=== PATIENT | male | born 1945 | race Caucasian/White ===

== ENCOUNTER 2017-05-22 17:04 | Emergency (ER) | payer MEDICARE, OTHER ==
[2017-05-22] MEDS ORDERED: Aspirin 81 MG Tab.Chew PO ONE (17:17)
[2017-05-22] MEDS ORDERED: Nitroglycerin 0.4 MG Tab.SL SL ONE ×3 (17:17→17:49)
[2017-05-22] MEDS: Sodium Chloride 0.9% 10 ML Syringe FLUSH PRN ×2 (17:25→17:45)
--- NOTE | 2017-05-22 17:36 | EDM.PDOC ---
ED HPI GENERAL MEDICAL PROBLEM - General Chief Complaint: Chest Pain Stated Complaint: CHEST PAINS Time Seen by Provider: 05/22/17 17:11 Source of Information: Reports: Patient History Limitations: Reports: No Limitations - History of Present Illness INITIAL COMMENTS - FREE TEXT/NARRATIVE: Patient presents to emergency room today with chest pain and left bicep, axilla , shoulder pain. Nelson reports he has has slight pain off and on for two weeks since he changed his crestor to lipitor. The pain became much worse today 10 at 1500, did not get better with ibuprofen or tylenol. He describes the pain as shooting and stabbing. Left Shoulder Pain Score (Numeric/FACES): 8 - Related Data Allergies Allergy/AdvReac Type Severity Reaction Status Date / Time Sulfa (Sulfonamide Allergy Hives Verified 05/05/16 15:26 Antibiotics) Home Meds: Home Meds Aspirin [Wale Chewable] 81 mg PO DAILY 03/21/14 [History] Pantoprazole Sodium [Protonix] 40 mg PO DAILY 03/21/14 [History] Ramipril [Altace] 10 mg PO DAILY 03/21/14 [History] Ubidecarenone [Co Q-10] 400 mg PO DAILY 03/21/14 [History] amLODIPine [Norvasc] 5 mg PO DAILY 03/21/14 [History] Past Medical History Cardiovascular History: Reports: High Cholesterol, Hypertension Oncologic (Cancer) History: Reports: Other (See Below) Other Oncologic History: precancerous melanoma Dermatologic History: Reports: Other (See Below) Other Dermatologic History: precancerous melanoma - Past Surgical History Cardiovascular Surgical History: Reports: Coronary Artery Stent Social & Family History - Tobacco Use Smoking Status *Q: Never Smoker - Alcohol Use Days Per Week of Alcohol Use: 0 - Recreational Drug Use Recreational Drug Use: No ED ROS GENERAL - Review of Systems Review Of Systems: See Below Constitutional: Denies: Fever, Chills, Malaise, Weakness, Night Sweats, Diaphoresis HEENT: Reports: No Symptoms Respiratory: Denies: Shortness of Breath, Wheezing, Cough, Sputum, Hemoptysis Cardiovascular: Reports: Chest Pain, Edema, Other (He complains of edema to left lower extremitiy with ecchymosis after injury from 4 [place] several days ago. ). Denies: Blood Pressure Problem, Claudication, Dyspnea on Exertion, Lightheadedness, Palpitations, PND, Syncope Endocrine: Reports: No Symptoms GI/Abdominal: Denies: Abdominal Pain, Constipation, Diarrhea, Difficulty Swallowing, Distension, Hematemesis, Hematochezia, Nausea, Vomiting Musculoskeletal: Reports: No Symptoms Skin: Reports: Bruising, Other (ecchymosis to left lower extremity with edema. ) . Denies: Pruritis, Rash, Erythema, Wound Neurological: Denies: Confusion, Dizziness, Headache, Numbness, Syncope, Tingling, Difficulty Walking, Weakness, Gait Disturbance Psychiatric: Reports: No Symptoms Hematologic/Lymphatic: Reports: No Symptoms Immunologic: Reports: No Symptoms ED EXAM, GENERAL - Physical Exam Exam: See Below Exam Limited By: No Limitations General Appearance: Alert, WD/WN, No Apparent Distress Eye Exam: Bilateral Eye: EOMI, PERRL Ears: Normal External Exam, Normal Canal, Hearing Grossly Normal, Normal TMs Ear Exam: Bilateral Ear: Auricle Normal, Canal Normal, TM normal Nose: Normal Inspection, Normal Mucosa, No Blood Throat/Mouth: Normal Inspection, Normal Lips, Normal Gums, Normal Oropharynx, Normal Voice, No Airway Compromise Head: Atraumatic, Normocephalic Neck: Normal Inspection, Supple, Non-Tender, Full Range of Motion. No: Lymphadenopathy (R), Lymphadenopathy (L) Respiratory/Chest: No Respiratory Distress, Lungs Clear, Normal Breath Sounds, No Accessory Muscle Use, Chest Non-Tender Cardiovascular: Normal Peripheral Pulses, Regular Rate, Rhythm, No Edema, No Murmur, No Rub Peripheral Pulses: 2+: Radial (L), Radial (R), Dorsalis Pedis (L), Dorsalis Pedis (R) GI/Abdominal: Normal Bowel Sounds, Soft, Non-Tender, No Organomegaly, No Distention, No Mass Back Exam: Normal Inspection, Full Range of Motion. No: CVA Tenderness (R), CVA Tenderness (L) Extremities: Normal Inspection, Normal Range of Motion, Non-Tender, Normal Capillary Refill, Other (1 to 2+ edema left lower extremity foot to left knee. ) Neurological: Alert, Oriented, CN II-XII Intact, Normal Cognition, Normal Gait, Normal Reflexes, No Motor/Sensory Deficits Psychiatric: Normal Affect, Normal Mood Skin Exam: Warm, Dry, Intact, Ecchymosis, Other (ecchymosis to left foot to knee. ) Lymphatic: No Adenopathy EKG INTERPRETATION EKG Date: 05/22/17 Rhythm: NSR P-Wave: Present QRS: LBBB ST-T: Normal QT: Normal EKG Interpretation Comments: Bundle branch block, old EKG obtained, compared. BBB is not new. Course - Vital Signs Last Recorded V/S: Last Vital Signs Temp 37.4 C 05/22/17 17:10 Pulse 50 L 05/22/17 20:31 Resp 16 05/22/17 20:31 BP 94/49 L 05/22/17 20:31 Pulse Ox 95 05/22/17 20:31 - Orders/Labs/Meds Orders: Active Orders 24 hr Category Date Time Status EKG Documentation Completion [RC] ASDIRECTED Care 05/22/17 17:18 Active EKG Documentation Completion [RC] ASDIRECTED Care 05/22/17 19:07 Active Telemetry Monitoring [Cardiac Monitoring] [RC] .As Care 05/22/17 17:18 Active Directed Chest 1V Frontal [CR] Stat Exams 05/22/17 17:18 Taken VL Duplex Lwr Ext Veins Ltd Lt [US] Stat Exams 05/22/17 17:38 Taken Sodium Chloride 0.9% [Saline Flush] Med 05/22/17 17:17 Active 10 ml FLUSH ASDIRECTED PRN Saline Lock Insert [OM.PC] Routine Oth 05/22/17 17:17 Ordered EKG 12 Lead [EK] Routine Ther 05/22/17 17:18 Ordered EKG 12 Lead [EK] Routine Ther 05/22/17 19:07 Ordered Medication Orders Sodium Chloride (Saline Flush) 10 ml FLUSH ASDIRECTED PRN PRN Reason: Keep Vein Open Last Admin: 05/22/17 17:45 Dose: 10 ml Admin: 05/22/17 17:25 Dose: 10 ml Labs: Laboratory Tests 05/22/17 05/22/17 05/22/17 Range/Units 17:25 17:25 17:25 WBC 9.5 (4.5-11.0) K/uL RBC 5.10 (4.30-5.90) M/uL Hgb 15.1 H (12.0-15.0) g/dL Hct 45.6 (40.0-54.0) % MCV 89 (80-98) fL MCH 30 (27-31) pg MCHC 33 (32-36) % Plt Count 172 (150-400) K/uL Neut % (Auto) 47 (36-66) % Lymph % (Auto) 39 (24-44) % [place] % (Auto) 12 H (2-6) % Eos % (Auto) 2 (2-4) % Baso % (Auto) 1 (0-1) % PT 10.2 (9.5-12.0) sec INR 0.96 (0.80-1.20) APTT 25.9 L (27.0-36.0) sec Sodium 138 L (140-148) mmol/L Potassium 3.8 (3.6-5.2) mmol/L Chloride 104 (100-108) mmol/L Carbon Dioxide 27 (21-32) mmol/L Anion Gap 10.8 (5.0-14.0) mmol/L BUN 19 H (7-18) mg/dL Creatinine 1.2 (0.8-1.3) mg/dL Est Cr Clr Drug Dosing 60.14 mL/min Estimated GFR (MDRD) 60 (>60) Glucose 171 H (74-106) mg/dL Calcium 8.5 (8.5-10.1) mg/dL Total Bilirubin 0.5 (0.2-1.0) mg/dL AST 22 (15-37) U/L ALT 32 (12-78) U/L Alkaline Phosphatase 60 (46-116) U/L Troponin I < 0.017 (0.000-0.056) ng/mL Total Protein 7.4 (6.4-8.2) g/dL Albumin 3.9 (3.4-5.0) g/dL Globulin 3.5 (2.3-3.5) g/dL Albumin/Globulin Ratio 1.1 L (1.2-2.2) 05/22/17 Range/Units 20:27 WBC (4.5-11.0) K/uL RBC (4.30-5.90) M/uL Hgb (12.0-15.0) g/dL Hct (40.0-54.0) % MCV (80-98) fL MCH (27-31) pg MCHC (32-36) % Plt Count (150-400) K/uL Neut % (Auto) (36-66) % Lymph % (Auto) (24-44) % [place] % (Auto) (2-6) % Eos % (Auto) (2-4) % Baso % (Auto) (0-1) % PT (9.5-12.0) sec INR (0.80-1.20) APTT (27.0-36.0) sec Sodium (140-148) mmol/L Potassium (3.6-5.2) mmol/L Chloride (100-108) mmol/L Carbon Dioxide (21-32) mmol/L Anion Gap (5.0-14.0) mmol/L BUN (7-18) mg/dL Creatinine (0.8-1.3) mg/dL Est Cr Clr Drug Dosing mL/min Estimated GFR (MDRD) (>60) Glucose (74-106) mg/dL Calcium (8.5-10.1) mg/dL Total Bilirubin (0.2-1.0) mg/dL AST (15-37) U/L ALT (12-78) U/L Alkaline Phosphatase (46-116) U/L Troponin I < 0.017 (0.000-0.056) ng/mL Total Protein (6.4-8.2) g/dL Albumin (3.4-5.0) g/dL Globulin (2.3-3.5) g/dL Albumin/Globulin Ratio (1.2-2.2) Lab work reviewed with patient. Troponin negative. Will be discharged as planned. Meds: Medications Generic Name Dose Route Start Last Admin Trade Name Freq PRN Reason Stop Dose Admin Sodium Chloride 10 ml 05/22/17 17:17 05/22/17 17:45 Saline Flush FLUSH 10 ml ASDIRECTED PRN Administration Keep Vein Open Discontinued Medications Generic Name Dose Route Start Last Admin Trade Name Freq PRN Reason Stop Dose Admin Aspirin 324 mg 05/22/17 17:17 05/22/17 17:24 Aspirin PO 05/22/17 17:18 324 mg ONETIME ONE Administration Ketorolac Tromethamine 15 mg 05/22/17 18:12 05/22/17 18:22 Toradol IVPUSH 05/22/17 18:13 15 mg ONETIME ONE Administration Morphine Sulfate 2 mg 05/22/17 17:37 05/22/17 17:44 Morphine IVPUSH 05/22/17 17:38 2 mg ONETIME ONE Administration Nitroglycerin 0.4 mg 05/22/17 17:17 05/22/17 17:24 Nitrostat SL 05/22/17 17:18 0.4 mg ONETIME ONE Administration Nitroglycerin 0.4 mg 05/22/17 17:36 05/22/17 17:37 Nitrostat SL 05/22/17 17:37 0.4 mg ONETIME ONE Administration Nitroglycerin 0.4 mg 05/22/17 17:49 05/22/17 17:44 Nitrostat SL 05/22/17 17:50 0.4 mg ONETIME ONE Administration - Re-Assessments/Exams Free Text/Narrative Re-Assessment/Exam: 05/22/17 17:55 Patient pain is now 4/10 after nitro SL x 3 and morphine 2 mg IV. Free Text/Narrative Re-Assessment/Exam: 05/22/17 19:20 Patient pain free, cardiac rhythm continues to display flipped T waves. Dr. Saldivar - hospitalist notified. Will complete second trop, if negative - patient can be discharged to home. Patient in agreement with plan. 05/22/17 21:10 Troponin negative, patient and Officer notified. Patient in agreement with plan for discharge to home. He will follow up with his retail account manager on ThursdayMay 25. Departure - Departure Time of Disposition: 21:08 Disposition: Home, Self-Care 01 Condition: Fair Clinical Impression: Atypical chest pain, Left shoulder pain Instructions: Shoulder Pain, [id number], Nonspecific Chest Pain Referrals: PCP,None [Primary Care Provider] - Forms: ED Department Discharge Additional Instructions: Your lab work and EKG was negative for an acute injury to your heart. The ultrasound of your left lower leg was negative for blood clot. It is best for you to follow up with your retail account manager and primary care provider in 7 days for recheck and any further testing. You are at high risk for cardiac event or injury. The best care would be for statin and aspirin daily. Return for worsening, chest pain, difficulty breathing or any other concerns. Take your current medications as is. You may take naproxen 500mg twice per day with food and/or hydrocodone as directed for muscle pain. - Problem List Review Problem List Initiated/Reviewed/Updated: Yes - My Orders Last 24 Hours: My Active Orders 05/22/17 17:17 Sodium Chloride 0.9% [Saline Flush] 10 ml FLUSH ASDIRECTED PRN Saline Lock Insert [OM.PC] Routine 05/22/17 17:18 EKG Documentation Completion [RC] ASDIRECTED Telemetry Monitoring [Cardiac Monitoring] [RC] .As Directed Chest 1V Frontal [CR] Stat EKG 12 Lead [EK] Routine 05/22/17 17:38 VL Duplex Lwr Ext Veins Ltd Lt [US] Stat 05/22/17 19:07 EKG Documentation Completion [RC] ASDIRECTED EKG 12 Lead [EK] Routine - Assessment/Plan Last 24 Hours: My Active Orders 05/22/17 17:17 Sodium Chloride 0.9% [Saline Flush] 10 ml FLUSH ASDIRECTED PRN Saline Lock Insert [OM.PC] Routine 05/22/17 17:18 EKG Documentation Completion [RC] ASDIRECTED Telemetry Monitoring [Cardiac Monitoring] [RC] .As Directed Chest 1V Frontal [CR] Stat EKG 12 Lead [EK] Routine 05/22/17 17:38 VL Duplex Lwr Ext Veins Ltd Lt [US] Stat 05/22/17 19:07 EKG Documentation Completion [RC] ASDIRECTED EKG 12 Lead [EK] Routine Assessment:: Atypical chest pain Left shoulder pain Plan: ab work and EKG was negative for an acute injury to your heart. The ultrasound left lower leg was negative for DVT It is best for patient to follow up with retail account manager and primary care provider in 7 days for recheck and any further testing. Patient is at high risk for cardiac event or injury. The best care would be for statin and aspirin daily. Return for worsening, chest pain, difficulty breathing or any other concerns. Take current medications as is. He may take naproxen 500mg twice per day with food and/or hydrocodone 5/325mg 1 to 2 tabs PO as directed #18 provided via instymed as directed for muscle pain. Officer in agreement with plan.
[2017-05-22] MEDS ORDERED: Morphine 2 MG/ML Syringe IVPUSH ONE (17:37)
[2017-05-22] MEDS ORDERED: Ketorolac 30 MG/ML SDV IVPUSH ONE (18:12)
[2017-05-22 20:31] VITALS: BP 94/49
--- NOTE | 2017-05-25 08:42 | CR ---
Chest 1V Frontal HISTORY: Chest pain COMPARISON: None FINDINGS: Portable chest, 1724 hours. Lungs appear clear and normally aerated. Cardiomediastinal silhouette is within normal limits. No va scular redistribution or pleural fluid can be seen. Bony structures and soft tissues are unremarkabl e. IMPRESSION: No acute chest abnormality identified.
--- NOTE | 2017-05-25 08:43 | US ---
VL Duplex Lwr Ext Veins Ltd Lt HISTORY: injury, edema ecchymosis left leg FINDINGS: Deep venous system of the left lower extremity demonstrates normal blood flow and compressibility th roughout. Normal Doppler waveform variation is seen with respiration and calf compression. No color flow abnormality can be seen. IMPRESSION: No sonographic evidence for DVT left lower extremity.
== END 2017-05-22 21:25 | disposition home or self-care (01) ==
LOC: JP.ED 17:04
DX: R07.89 Other chest pain (principal); M25.512 Pain in left shoulder; E78.00 Pure hypercholesterolemia, unspecified; I10 Essential (primary) hypertension; Z88.2 Allergy status to sulfonamides; Z79.82 Long term (current) use of aspirin; Z79.899 Other long term (current) drug therapy
CPT/HCPCS: 36415; 71010; 80053; 84484; 85025; 85610; 85730; 93005; 93971; 96374; 96375; 99285; A9270; J1885; J2270; J7050; 93010; 99284